=== PATIENT | female | born 1995 | race Caucasian/White ===

== ENCOUNTER 2018-10-17 03:55 | Emergency (ER) | payer OTHER ==
[~2018-10-17] VITALS: Ht 160 cm; Wt 122.1 kg
[2018-10-17 04:00] VITALS: Ht 160 cm; Wt 122.1 kg
[2018-10-17 04:51] LABS: BASOPHIL % 0.3 % (0-2); PLATELET COUNT 286 x10^3mcL (130-400)
[2018-10-17 04:59] LABS: RED CELL DISTRIBUTION WIDTH 14.6 % (11.5-14.5)
[2018-10-17 05:05] LABS: CALCIUM 8.7 mg/dL (8.5-10.1); CARBON DIOXIDE 24.6 mmol/L (21-32); CHLORIDE SERUM 102 mmol/L (98-107); CREATININE SERUM 0.7 mg/dL (0.6-1.0); GFR1 > 60 mL/min; GLUCOSE SERUM 126 mg/dL (74-106); POTASSIUM SERUM 3.7 mmol/L (3.5-5.1); SODIUM SERUM 136 mmol/L (136-145)
[2018-10-17 05:21] LABS: ALKALINE PHOSPHATASE 73 U/L (46-116); ALT/SGPT 27 U/L (14-59); AST/SGOT 15 U/L (15-37); BILIRUBIN TOTAL 0.14 mg/dL (0.20-1.00); LIPASE 116 IU/L (73-393); TOTAL PROTEIN, SERUM 7.4 g/dL (6.4-8.2)
[2018-10-17 05:34] LABS: ALBUMIN 3.2 g/dL (3.4-5.0)
[2018-10-17 09:12] VITALS: BP 110/75
== END 2018-10-17 09:12 | disposition home or self-care (01) ==
LOC: ED 03:55
PROVIDERS: Emergency Medicine
DX: O99.612 Diseases of the digestive system complicating pregnancy, second trimester (principal); O36.4XX9 Maternal care for intrauterine death, other fetus; K80.20 Calculus of gallbladder without cholecystitis without obstruction; Z3A.12 12 weeks gestation of pregnancy
CPT/HCPCS: J1885; J2270; J2405; J7030

== ENCOUNTER 2019-07-17 13:43 | Emergency (ER) | payer OTHER ==
[~2019-07-17] VITALS: Ht 160 cm; Wt 125.6 kg
[2019-07-17 14:27] VITALS: Ht 160 cm; Wt 125.6 kg
[2019-07-17 15:07] LABS: BASOPHIL % 0.7 % (0-2); PLATELET COUNT 322 x10^3mcL (130-400); RED CELL DISTRIBUTION WIDTH 13.7 % (11.5-14.5)
[2019-07-17 15:40] LABS: UA SPECIFIC GRAVITY 1.025 (1.005-1.035); microscopic required? YES; urine erythrocyte 1+ (NEGATIVE)
[2019-07-17 16:23] LABS: CARBON DIOXIDE 26.9 mmol/L (21-32); CHLORIDE SERUM 107 mmol/L (98-107); GLUCOSE SERUM 104 mg/dL (74-106); SODIUM SERUM 140 mmol/L (136-145)
[2019-07-17 16:24] LABS: ALBUMIN 3.2 g/dL (3.4-5.0); ALKALINE PHOSPHATASE 77 U/L (46-116); ALT/SGPT 19 U/L (14-59); AMYLASE 32 U/L (25-115); AST/SGOT 9 U/L (15-37); BILIRUBIN TOTAL 0.2 mg/dL (0.20-1.00); CALCIUM 8.6 mg/dL (8.5-10.1); CREATININE SERUM 0.7 mg/dL (0.6-1.0); GFR1 > 60 mL/min; LIPASE 121 IU/L (73-393); TOTAL PROTEIN, SERUM 7.3 g/dL (6.4-8.2)
[2019-07-17 17:51] VITALS: BP 133/59
== END 2019-07-17 17:51 | disposition home or self-care (01) ==
LOC: ED 13:43
PROVIDERS: Emergency Medicine
DX: K80.70 Calculus of gallbladder and bile duct without cholecystitis without obstruction (principal); N39.0 Urinary tract infection, site not specified
CPT/HCPCS: 36415; J1885; Q0092; Q0162

== ENCOUNTER 2019-10-16 13:03 | Emergency (ER) | payer OTHER ==
[~2019-10-16] VITALS: Ht 160 cm; Wt 127.9 kg
[2019-10-16 13:11] VITALS: Ht 160 cm; Wt 127.9 kg
[2019-10-16 14:02] LABS: BASOPHIL % 0.3 % (0-2); PLATELET COUNT 294 x10^3mcL (130-400); RED CELL DISTRIBUTION WIDTH 13.9 % (11.5-14.5)
[2019-10-16 15:09] VITALS: BP 105/59
== END 2019-10-16 15:09 | disposition home or self-care (01) ==
LOC: ED 13:03
PROVIDERS: Emergency Medicine
DX: O20.0 Threatened abortion (principal); Z3A.08 8 weeks gestation of pregnancy
CPT/HCPCS: 36415; Q0092

== ENCOUNTER 2020-06-20 01:48 | Emergency (ER) | payer OTHER ==
[~2020-06-20] VITALS: Ht 157.5 cm; Wt 124.7 kg
[2020-06-20 01:57] VITALS: BP 120/79; Ht 157.5 cm; Wt 124.7 kg
[2020-06-20 03:36] LABS: BASOPHIL % 0.4 % (0.2-1.3); PLATELET COUNT 273 x10^3mcL (179-408); RED CELL DISTRIBUTION WIDTH 13.9 % (12.3-17.7)
[2020-06-20 03:46] LABS: CARBON DIOXIDE 26.6 mmol/L (21-32); CHLORIDE SERUM 106 mmol/L (98-107); CREATININE SERUM 0.8 mg/dL (0.6-1.0); GFR1 > 60 mL/min; GLUCOSE SERUM 108 mg/dL (74-106); POTASSIUM SERUM 3.9 mmol/L (3.5-5.1); SODIUM SERUM 143 mmol/L (136-145)
[2020-06-20 03:50] LABS: ALBUMIN 3.4 g/dL (3.4-5.0); ALKALINE PHOSPHATASE 132 U/L (46-116); ALT/SGPT 31 U/L (14-59); AST/SGOT 19 U/L (15-37); BILIRUBIN TOTAL 0.38 mg/dL (0.20-1.00); LIPASE 133 IU/L (73-393); TOTAL PROTEIN, SERUM 7.2 g/dL (6.4-8.2)
== END 2020-06-20 02:30 | disposition home or self-care (01) ==
LOC: ED 01:48
PROVIDERS: Emergency Medicine
DX: Z53.21 Procedure and treatment not carried out due to patient leaving prior to being seen by health care provider (principal)

== ENCOUNTER 2020-06-21 08:27 | Emergency (ER) | payer OTHER ==
[~2020-06-21] VITALS: Ht 157.5 cm; Wt 121.6 kg
[2020-06-21 08:37] VITALS: Ht 157.5 cm; Wt 121.6 kg
[2020-06-21 10:19] LABS: BASOPHIL % 0.2 % (0.2-1.3); PLATELET COUNT 297 x10^3mcL (179-408)
[2020-06-21 10:20] LABS: CARBON DIOXIDE 26.6 mmol/L (21-32); CHLORIDE SERUM 105 mmol/L (98-107); CREATININE SERUM 0.8 mg/dL (0.6-1.0); GFR1 > 60 mL/min; GLUCOSE SERUM 104 mg/dL (74-106); POTASSIUM SERUM 4.1 mmol/L (3.5-5.1); SODIUM SERUM 142 mmol/L (136-145)
[2020-06-21 10:24] LABS: ALBUMIN 3.6 g/dL (3.4-5.0); ALKALINE PHOSPHATASE 265 U/L (46-116); ALT/SGPT 383 U/L (14-59); AST/SGOT 323 U/L (15-37); BILIRUBIN TOTAL 1.62 mg/dL (0.20-1.00); LIPASE 122 IU/L (73-393); TOTAL PROTEIN, SERUM 7.5 g/dL (6.4-8.2)
[2020-06-21 10:45] VITALS: BP 128/70
[2020-06-21 11:33] LABS: UA SPECIFIC GRAVITY >=1.030 (1.005-1.035); microscopic required? YES; urine erythrocyte 3+ (NEGATIVE)
== END 2020-06-21 10:45 | disposition home or self-care (01) ==
LOC: ED 08:27
PROVIDERS: Specialist
DX: K80.50 Calculus of bile duct without cholangitis or cholecystitis without obstruction (principal); Z98.890 Other specified postprocedural states
CPT/HCPCS: 36415; J1885; J3010